=== PATIENT | male | born 2000 | race Caucasian/White ===

== ENCOUNTER 2022-05-02 22:50 | Emergency (ER) | payer SELFPAY ==
[2022-05-02 23:28] VITALS: BP 102/68; PULSE 91; RESP 18; TEMP 36.9; O2SAT 97; BMI 21.5
--- NOTE | 2022-05-03 00:23 | ED_ITS ---
HPI - Fall General: Chief Complaint: Fall Stated Complaint: Head Injury Time Seen by Provider: 05/03/22 00:10 History of Present Illness: Patient is a 21-year-old male comes to the ED with fever and concussion symptoms. Patient had a fall from a barn approximately 7 days ago. He states that he hit his head but denies any loss of consciousness. Since fall patient has been having a headache, mental fogginess, dizziness, sluggish and not feeling great. Patient did not go to a provider or medical facility after fall. Yesterday due to his symptoms he went to the emergency department at [facility] and a head CT was performed and it was clear. He was discharged home and diagnosed with a concussion. Today patient developed a fever. Says his temperature at home was 102. He took a dose of Tylenol and ibuprofen within the last 4 hours before coming to the ED. Denies any neck pain, nasal drainage/congestion, ear pain, sore throat, cough, chest pain, shortness of breath, abdominal pain or bladder or bowel symptoms. He did have 1 episode of emesis 3 days ago but has not had any other episodes since. Associated symptoms-after fall: Reports headache(s); Denies abdominal pain, chest pain, hematuria or neck pain Review of Systems Const: Denies: fever(s), chills or fatigue Eyes: Denies: change in vision or eye discomfort ENMT: Denies: throat pain, odynophagia, nasal discharge or nasal congestion Card: Denies: chest pain, palpitations, edema, swelling of feet/ankles, dyspnea on exertion or orthopnea Resp: Denies: dyspnea, productive cough or non-productive cough GI: Denies: abdominal pain, nausea, vomiting, diarrhea, constipation or hematochezia : Denies: flank pain, difficulty urinating, dysuria or hematuria Musc: Denies: neck pain, back pain or extremity swelling Skin/Breast: Denies: rash or new lesions Neuro: Reports: headache(s) and other (Concussion symptoms-mental fogginess, dizziness, sluggish and not feeling r); Denies: numbness in extremities or weakness in extremities PFS ED PFSH: Medical History (Updated 05/03/22 @ 01:59 by BETHANY Rockwell) No pertinent family history No pertinent past medical history Social History (Reviewed 05/03/22 @ 01:16 by CHARISSA Rockwell Smoking and tobacco status: current every day smoker e-cigarettes E-Cigarette Details: vaporizer device E-cig/vape details: some daily Alcohol intake: current Alcohol intake frequency: few times a week Alcohol type: beer Marital status: Single Physical Exam Const: COMMON NORMALS: no acute distress, patient oriented x3, healthy appearing and alert GENERAL APPEARANCE: cooperative and comfortable HENMT: COMMON NORMALS: normocephalic HEAD & SCALP: normocephalic MOUTH: Normal oral and palatal mucosa present THROAT: posterior oropharynx normal and uvula midline Eye: COMMON NORMALS: Equal, round and reactive pupils present, EOMs intact bilaterally and conjunctivae normal CONJUNCTIVA: Yes conjunctivae normal PUPIL: Yes Equal, round and reactive pupils present Neck/C-Spine: COMMON NORMALS: supple GENERAL: Yes normal visual inspection CERVICAL SPINE: Yes cervical ROM normal, No pain with cervical ROM, No Cervical spine tenderness and No Paracervical muscle tenderness Resp: COMMON NORMALS: normal respiratory effort, No retractions, No use of accessory muscles and clear to auscultation bilaterally AUSCULTATION: clear to auscultation bilaterally Cardio: COMMON NORMALS: regular rate, regular rhythm, S1 normal heart sound present, S2 normal heart sound present, No gallops present (Cardio), No clicks present (Cardio), No murmurs present (Cardio) and Peripheral pulses 2+ throughout RATE: regular rate RHYTHM: regular rhythm HEART SOUNDS: S1 normal heart sound present and S2 normal heart sound present PERIPHERAL P ULSES: Peripheral pulses 2+ throughout GI: COMMON NORMALS: Normal to inspection, nondistended, normoactive bowel sounds present, Soft to palpation, non-tender and no masses PALPATION: Yes Soft to palpation : COMMON NORMALS: Yes no CVA tenderness BLADDER/KIDNEY EXAM: Yes no CVA tenderness Back/Pelvis: COMMON NORMALS: no CVA tenderness Extremity: COMMON NORMALS: normal to inspection Neuro: COMMON NORMALS: patient oriented x3 SENSORIUM/ORIENTATION: Yes alert GAIT: Yes Normal gait present Skin: GENERAL SKIN EXAM: dry skin Course Vital Signs: Vital signs: Vital Signs Temperature 98.5 F 05/02/22 23:28 Pulse Rate 59 L 05/03/22 02:13 Respiratory Rate 16 05/03/22 02:13 Blood Pressure 102/60 05/03/22 02:13 Pulse Oximetry 99 10/22/22 02:13 Oxygen Delivery Me thod 05/02/22 23:28 MDM - Fall Medical Decision Making Patient is a 21-year-old male comes to the ED with concussion symptoms. He had a fall about a week ago where he fell and hit his head but denies any loss of consciousness. Since fall he has been having headaches, nausea, sluggishness, mental fog and dizziness. He went to the emergency department at [facility] in [place] yesterday and they performed a CT head which showed no acute findings patient was discharged from ED yesterday. Today he started developing a fever which patient still having concussion type symptoms as well. Denies any other upper respiratory or GI symptoms. Vitals are stable patient is afebrile. Exam is benign. CBC and CMP were unremarkable. Chest x-ray shows no acute findings. Patient was diagnosed with a concussion and was stable for discharge home. He was told to follow-up with his PCP within the next week for reevaluat ion. Return ED precautions given. Patient understood and agreed with plan. Lab Data I reviewed the patient's lab results. : 05/03/22 00:50 05/03/22 00:50 Radiology Impressions Chest X-Ray 05/03/22 00:34 IMPRESSION: No chest radiographic evidence of acute cardiopulmonary disease. Laboratory Results WBC 6.6 10^3/uL (4.0-10.0) 05/03/22 00:50 RBC 4.76 10^6/uL (4.1-5.3) 05/03/22 00:50 Hgb 13.6 g/dL (11.7-16.6) 05/03/22 00:50 Hct 40.5 % (42.0-52.0) L 05/03/22 00:50 MCV 85.1 fl (80-94) 05/03/22 00:50 MCH 28.6 pg (28.0-34.0) 05/03/22 00:50 MCHC 33.6 g/dL (30.0-36.0) 05/03/22 00:50 RDW 12.5 % (12.1-15.1) 05/03/22 00:50 Plt Count 268 10^3/cmm (130-400) 05/03/22 00:50 MPV 8.7 fL (7.4-10.4) 05/03/22 00:50 Neut % (Auto) 75.4 % 05/03/22 00:50 Lymph % (Auto) 13.2 % 05/03/22 00:50 [place] % (Auto) 8.5 % 05/03/22 00:50 Eos % (Auto) 2.0 % 05/03/22 00:50 Baso % (Auto) 0.6 % 05/03/22 00:50 Neut # (Auto) 4.96 10^3/uL (1.8-7.7) 05/03/22 00:50 Lymph # (Auto) 0.9 10^3/uL (0.8-4.8) 05/03/22 00:50 [place] # (Auto) 0.6 10^3/uL (0.2-0.9) 05/03/22 00:50 Eos # (Auto) 0.1 10^3/uL (0.0-0.8) 05/03/22 00:50 Baso # (Auto) 0.0 10^3/uL (0.0-0.1) 05/03/22 00:50 Nucleated RBC % (auto) 0 % 05/03/22 00:50 Nucleated RBCs # 0.0 /100WBC 05/03/22 00:50 Sodium 135 mmol/L (136-145) L 05/03/22 00:50 Potassium 3.7 mmol/L (3.5-5.1) 05/03/22 00:50 Chloride 98 mmol/L (98-107) 05/03/22 00:50 Carbon Dioxide 25 mmol/L (22-29) 05/03/22 00:50 Anion Gap 15.7 (5-19) 05/03/22 00:50 BUN 7 mg/dL (6-20) 05/03/22 00:50 Creatinine 0.7 mg/dL (0.7-1.2) 05/03/22 00:50 GFR Calculation 142.4 mL/min (90-130) H 05/03/22 00:50 Glucose 99 mg/dL (65-115) 05/03/22 00:50 Calculated Osmolality 278 mOsm/kg (285-295) L 05/03/22 00:50 Calcium 8.9 mg/dL (8.5-10.5) 05/03/22 00:50 Discharge Plan Discharge Patient Disposition: Home Clinical Impression: Concussion Qualifiers: Encounter type: initial encounter Loss of consciousness presence/duration: without LOC Qualified Code(s): S06.0X0A - Concussion without loss of consc iousness, initial encounter Condition: Stable Prescriptions: No Action No Known Home Medications Discharge Orders: Discharge ED (Routine); Ordered 05/03/22 Ordered By: Fred Murphy Discharge Diet: Regular Discharge Activity: Increase activity as tolerated Patient Instructions: Concussion (ED) Activity Restrictions/Additional Instructions: Follow-up with medical provider as directed in the next 3 to 5 days for reevaluation. Continue taking [id number] Tylenol or ibuprofen for headaches. Return to the ER or your medical provider if condition worsens. Please read and understand discharge instructions. Thank you for choosing [facility] for your healthcare needs today. Please realize this is an emergency room and that we are providing you with a medical screening exam and this may not be complete and all inclusive of all the testing and or work up that you may need to determine your ailment or severity of your illness. It is very important that you follow up as instructed or that you return to the Emergency Department should you have concerns or if your condition changes or worsens in any way. Coding Level of Care Code ED Unit Assembler for Amanda Sheridan Exam Comprehensive
--- NOTE | 2022-05-03 00:34 | XRR_ITS ---
PROCEDURE INFORMATION: Exam: XR Chest Exam date and time: 05/03/2022 12:37 AM Age: 21 years old Clinical indication: Fever TECHNIQUE: Imaging protocol: Radiologic exam of the chest. Views: 1 view. COMPARISON: No relevant prior studies available. FINDINGS: Lungs: Normal lung volumes. No interstitial or airspace opacities. Pleural spaces: No pleural effusion. No pneumothorax. Heart/Mediastinum: Normal heart size. Normal mediastinal contour. Midline trachea. Bones/joints: No acute abnormalities. XR/XR chest 1V portable [id number] IMPRESSION: No chest radiographic evidence of acute cardiopulmonary disease.
[2022-05-03 00:58] LABS: Basophils % 0.6 %; Eosinophils # 0.1 10^3/uL (0.0-0.8); Hematocrit 40.5 % (42.0-52.0); Hemoglobin 13.6 g/dL (11.7-16.6); Lymphocytes # 0.9 10^3/uL (0.8-4.8); Lymphocytes % 13.2 %; Mean Corpuscular HGB Conc 33.6 g/dL (30.0-36.0); Mean Corpuscular Hemoglobin 28.6 pg (28.0-34.0); Mean Corpuscular Volume 85.1 fl (80-94); Mean Platelet Volume 8.7 fL (7.4-10.4); Monocytes # 0.6 10^3/uL (0.2-0.9); Monocytes % 8.5 %; Neutrophils # 4.96 10^3/uL (1.8-7.7); Neutrophils % 75.4 %; Nucleated Red Blood Cells % 0 %; Platelet Count 268 10^3/cmm (130-400); Red Blood Count 4.76 10^6/uL (4.1-5.3); Red Cell Distribution Width 12.5 % (12.1-15.1); White Blood Count 6.6 10^3/uL (4.0-10.0)
[2022-05-03 01:19] LABS: Anion Gap 15.7 (5-19); Blood Urea Nitrogen 7 mg/dL (6-20); Calcium 8.9 mg/dL (8.5-10.5); Carbon Dioxide 25 mmol/L (22-29); Chloride 98 mmol/L (98-107); Glomerular Filtration Rate 142.4 mL/min (90-130); Glucose 99 mg/dL (65-115); Osmolality Calculated 278 mOsm/kg (285-295); Potassium 3.7 mmol/L (3.5-5.1); Sodium 135 mmol/L (136-145)
[2022-05-03 02:13] VITALS: BP 102/60; PULSE 59; RESP 16; O2SAT 99
== END 2022-05-03 02:14 | disposition home or self-care (01) ==
PROVIDERS: Emergency Provider Physician Assistant
DX: S06.0X0A Concussion without loss of consciousness, initial encounter (principal); W17.89XA Other fall from one level to another, initial encounter; Y92.71 Barn as the place of occurrence of the external cause; F17.290 Nicotine dependence, other tobacco product, uncomplicated
CPT/HCPCS: 36415; 71045; 80048; 85025; 99284